=== PATIENT | female | born 1960 | race Caucasian/White ===

== ENCOUNTER 2016-04-13 09:52 | Outpatient (CLI) | payer OTHER | END 2016-04-13 09:53 | LOC: HPCALD 09:52 | PROVIDERS: ATTEND Physician Assistant | DX: E89.0 Postprocedural hypothyroidism (principal) | CPT/HCPCS: 36415; 84443 ==

== ENCOUNTER 2016-07-15 09:52 | Outpatient (CLI) | payer OTHER | END 2016-07-15 09:53 | LOC: HPCALD 09:52 | PROVIDERS: ATTEND Physician Assistant | DX: E89.0 Postprocedural hypothyroidism (principal) | CPT/HCPCS: 36415; 84443 ==

== ENCOUNTER 2017-06-10 09:34 | Outpatient (CLI) | payer BC ==
--- NOTE | 2017-06-10 15:18 | RAD ---
FIVE VIEWS OF THE LEFT KNEE: INDICATION: Chronic left knee pain. COMPARISON: None. FINDINGS: There is a moderate to advanced osteoarthrosis of the left knee predominantly affecting the patellofe moral and lateral femorotibial joint compartment. There is a mild amount of chondrocalcinosis within the fibrocartilage of the menisci. There is moderate lateral femorotibial joint compartmental narro wing. No joint capsular distention is evident. No acute osseous abnormality is evident. IMPRESSION: 1. Moderate to severe left knee osteoarthrosis. 2. Chondrocalcinosis. POS: OFF
== END 2017-06-10 09:35 | disposition home or self-care (01) ==
LOC: BURRAD 09:34
PROVIDERS: ATTEND Physician Assistant
DX: M25.562 Pain in left knee (principal); M17.12 Unilateral primary osteoarthritis, left knee; M11.262 Other chondrocalcinosis, left knee

== ENCOUNTER 2021-05-02 09:28 | Outpatient (CLI) | payer BC | END 2021-05-02 09:29 | disposition home or self-care (01) | LOC: BURRAD 09:28 | PROVIDERS: ATTEND Physician Assistant | DX: Z47.1 Aftercare following joint replacement surgery (principal); Z96.652 Presence of left artificial knee joint ==